=== PATIENT | female | born 1955 | race Caucasian/White ===

== ENCOUNTER 2021-10-25 14:20 | Emergency (ER) | payer OTHER, SELFPAY ==
[2021-10-25 15:27] LABS: COVID-19 Test Negative (Negative); IDNOW Serial# 9DD0AD1C
[2021-10-25 16:19] VITALS: BP 159/74; PULSE 96; RESP 18; TEMP 37.2; O2SAT 95; BMI 37.4
--- NOTE | 2021-10-25 17:23 | ED_ITS ---
HPI - General Adult General Chief complaint: Upper Respiratory Symptoms Stated complaint: cough sinus Time Seen by Provider: 10/25/21 14:34 History of Present Illness HPI narrative: Patient complains of dry cough and runny nose and some body aches for 3 days no shortness of breath no chest pain no vomiting Related Data Previous Rx's Medication Instructions Recorded azithromycin 250 mg tablet 250 mg PO DAILY 6 Days #6 tab 10/25/21 azithromycin 250 mg tablet See Rx Instructions .ROUTE 10/25/21 (Zithromax Z-Homer) .COMPLEX #6 tab Allergies Allergy/AdvReac Type Severity Reaction Status Date / Time Sulfa (Sulfonamide Allergy Unknown HIVES Verified 10/25/21 16:19 Antibiotics) [SULFA (SULFONAMIDE ANTIBIOTICS)] Review of Systems Review of Systems: Positive core for cough body aches and runny nose Negatives are no fever no chills no dizziness weakness no headache no she neck p ain no stiff neck no shortness of breath no chest pain no abdominal pain no nausea or vomiting Yes all other systems are reviewed and are negative PMFSH Past Medical History Source: nursing notes reviewed Social History Social History Advance Directives: No Advance Directives Information Provided: No Physical Exam Vital Signs: Vital Signs: Last Vital Signs Temp 98.9 F 10/25/21 16:19 Pulse 96 10/25/21 16:19 Resp 18 10/25/21 16:19 BP 159/74 H 10/25/21 16:19 Pulse Ox 95 10/25/21 16:19 BMI result Body Mass Index 37.4 General appearance comfortable no distress Eyes no redness no discharge The neck is supple Chest is clear to auscultation bilateral No respiratory distress Extremities full range of motion x4 Course Course Course Narrative: Patient was COVID negative Was given a prescription for Zithromax for the chance that she is developing of bacterial bronchitis She is advised that as she is diabetic and over 65 she is high risk for COVID and I would recommend retesting as she has typical symptoms and if she did have COVID she would be eligible for monoclonal antibody treatment She was very well-appearing and discharged Medical Decision Making Lab Data Labs: Lab Results 10/25/21 Range/Units 14:49 COVID-19 (C[facility]IL) Negative (Negative) COVID-19 Clin Com See Note Discharge Plan Discharge Clinical Impression: Bronchitis Patient Disposition: Home, Self-Care Additional Instructions: COVID test was negative I wrote antibiotic Zithromax for bronchitis Return any time for difficulty breathing any worse condition or any concerns I would recommend repeat COVID testing in 2-3 days as an initial COVID test often misses it and if you do have COVID we would want a no as you would be a candidate for monoclonal treatment Prescriptions: New azithromycin 250 mg tablet 250 mg PO DAILY 6 Days Qty: 6 RF: 0 azithromycin [Zithromax Z-Homer] 250 mg tablet See Rx Instructions .ROUTE .COMPLEX Qty: 6 RF: 0 Interventions: ED Discharge Assessment Last Done: 10/25/21 16:45 Discharge Date/Time: 10/25/21 17:12
== END 2021-10-25 17:12 | disposition home or self-care (01) ==
PROVIDERS: Physician Assistant; Emergency Provider Emergency Medicine Emergency Medical Services; PCP Family Medicine Adult Medicine
DX: J40 Bronchitis, not specified as acute or chronic (principal); Z20.822 Contact with and (suspected) exposure to COVID-19
CPT/HCPCS: 36415; 87635; 99282; 99283